=== PATIENT | male | born 2000 | race Caucasian/White ===

== ENCOUNTER 2024-04-23 11:00 | Emergency (ER) | payer BC ==
[~2024-04-23] VITALS: Ht 170.2 cm; Wt 70.0 kg
[2024-04-23 11:04] VITALS: O2SAT 98
[2024-04-23] MEDS ORDERED: ZONI25CA13 PO (11:06)
[2024-04-23 11:56] VITALS: TEMP 98.6
[2024-04-23] MEDS: LACTATED RINGERS 1,000 ML IV SCH (11:56)
[2024-04-23] MEDS: ONDANSETRON HCL 4MG/2ML INJ IV ONE (11:56)
[2024-04-23] MEDS: ACETAMINOPHEN 325MG TABLET PO ONE (11:56)
[2024-04-23 12:05] LABS: BASOPHILS % 0.5 % (0.0-2.0); EOSINOPHILS % 0.3 % (0.0-5.0); HEMATOCRIT. 44.2 % (42.0-52.0); HEMOGLOBIN. 15.2 g/dL (14.0-18.0); LYMPHOCYTES % 25.4 % (20.0-50.0); MEAN CORPUSCULAR HEMOGLOBIN 29.8 pg (28.0-32.0); MEAN CORPUSCULAR HGB CONC 34.4 g/dL (31.0-37.0); MEAN CORPUSCULAR VOLUME 86.7 fL (80.0-94.0); MEAN PLATELET VOLUME 7.5 fl (7.4-10.4); MONOCYTES % 7.5 % (2.0-8.0); NEUTROPHILS % 66.3 % (40.0-76.0); PLATELET 319 x1000/uL (130-400); RED BLOOD CELL COUNT 5.11 mill/uL (4.7-6.1); RED CELL DISTRIBUTION WIDTH 13.3 % (11.6-14.6); WHITE BLOOD COUNT 5.6 x1000/uL (4.5-11.0)
[2024-04-23 12:07] LABS: CHLORIDE 105 mEq/L (98-107); POTASSIUM 3.9 mEq/L (3.5-5.1); SODIUM 140 mEq/L (136-145)
[2024-04-23 12:08] LABS: CALCIUM 9.9 mg/dL (8.7-10.4); CARBON DIOXIDE 25 mEq/L (21-32)
[2024-04-23 12:13] LABS: CREATININE 0.9 mg/dL (0.6-1.3); GLUCOSE 80 mg/dL (70-105); UREA NITROGEN BLOOD 9 mg/dL (9-23)
[2024-04-23 12:15] LABS: ALANINE AMINOTRANSFERASE 98 IU/L (10-49); ALBUMIN 5.2 g/dL (3.2-4.8); ASPARTATE AMINOTRANSFERASE 48 IU/L (<34); BILIRUBIN TOTAL 0.4 mg/dL (0.1-1.0); PROTEIN TOTAL 7.7 g/dL (6.0-8.3)
[2024-04-23 13:25] VITALS: BP 132/69; PULSE 95; RESP 19; O2SAT 100
== END 2024-04-23 13:44 | disposition home or self-care (01) ==
LOC: ER 11:14
DX: G40.909 Epilepsy, unspecified, not intractable, without status epilepticus (principal); S09.90XA Unspecified injury of head, initial encounter; R74.01 Elevation of levels of liver transaminase levels; X58.XXXA Exposure to other specified factors, initial encounter; Y93.89 Activity, other specified; Y92.89 Other specified places as the place of occurrence of the external cause; Y99.8 Other external cause status
CPT/HCPCS: 99285; 96374; 70450; 96361; 80053; 85025; 36415; 93005; J2405